=== PATIENT | male | born 1955 | race Caucasian/White ===

== ENCOUNTER 2023-05-26 09:42 | Emergency (ER) | payer BC, SELFPAY ==
--- NOTE | ~2023-05-26 | XR_ITS ---
EXAMINATION: XR chest 2V DATE: 05/26/2023 10:54 INDICATION: Shortness of breath. Anemia. TECHNIQUE: Frontal and lateral views of the chest were obtained. COMPARISON: None. FINDINGS: There is no pneumonia, pleural effusion, or pneumothorax. The heart size is normal. There i s a large hiatal hernia. There is mild chronic anterior wedging of multiple vertebral bodies. IMPRESSION: 1. Large hiatal hernia. Reviewed, dictated and finalized at location A. IMPRESSION: 1. Large hiatal hernia.
--- NOTE | 2023-05-26 09:46 | ECG_ITS ---
SEE SCANNED COPY FOR CONFIRMED REPORT MTDD
[2023-05-26 09:47] VITALS: BP 161/93; PULSE 92; RESP 18; TEMP 36.1; O2SAT 98
[2023-05-26 10:11] LABS: Basophils Absolute Auto 0.1 K/mm3 (0.0-0.1); Basophils Percent Auto 0.7 % (0.2-1.2); Eosinophils Absolute Auto 0.3 K/mm3 (0-0.3); Eosinophils Percent Auto 2.9 % (0-4.4); Hematocrit 32.8 % (42.0-52.0); Hemoglobin 9.2 g/dL (14.0-18.0); Immature Granulocyte Absolute 0.04 K/mm3 (0.00-0.031); Immature Granulocyte Percent A 0.4 % (0-0.5); Lymphocytes Absolute Auto 1.51 K/mm3 (0.9-3.2); Lymphocytes Percent Auto 15.3 % (18.3-44.2); Mean Corpuscular Volume 71.3 fl (80-100); Mean Platelet Volume 9.5 fl (7.4-10.4); Monocytes Absolute Auto 0.7 K/mm3 (0.1-0.6); Neutrophils Absolute Auto 7.3 K/mm3 (1.3-6.7); Neutrophils Percent Auto 73.7 % (45.5-73.1); Platelet Count Result 293 k/mm3 (150-375); Red Cell Distribution Width 20.4 % (11.5-14.5); White Blood Count 9.9 K/mm3 (4.5-10.0)
[2023-05-26 10:15] VITALS: BP 143/88; PULSE 78; RESP 16; O2SAT 95; O2SAT 98
[2023-05-26 10:16] LABS: INR 1.1; Prothrombin Time 14.7 Seconds (11.1-14.7)
[2023-05-26 10:17] LABS: Partial Thromboplastin Time 27.5 Seconds (22.3-36.8)
[2023-05-26 10:32] LABS: Alanine Aminotransferase 17 U/L (6-50); Albumin Level 4.3 g/dL (3.5-5.1); Alkaline Phosphatase 67 U/L (38-126); Anion Gap 7 mmol/L (4-12); Aspartate Amino Transferase 25 U/L (17-59); Bilirubin,Total 0.6 mg/dL (0.2-1.3); Blood Urea Nitrogen 13 mg/dL (9-20); Calcium 9.2 mg/dL (8.4-10.2); Carbon Dioxide 25 mmol/L (22-30); Chloride 106 mmol/L (98-107); Estimated CRCL calculation 111 ml/min; Estimated Glomerular Filt Rate > 60; Glucose 143 mg/dL (65-110); Potassium 4.2 mmol/L (3.4-5.0); Sodium 138 mmol/L (137-145)
--- NOTE | 2023-05-26 10:39 | ED.SOB ---
HPI - SOB/Dyspnea General Chief Complaint: Shortness of Breath/Dyspnea Stated Complaint: SOB, low hgb Time Seen by Provider: 05/26/23 10:19 Source: patient Mode of arrival: ambulatory Limitations: no limitations History of Present Illness HPI Narrative: 68-year-old male presenting for his shortness of breath on exertion for the last week. Typically when this happens to him he has low hemoglobin any to blood transfusion. He has had many blood transfusions in his life and feels like that is the case. Had outpatient lab work by his PCP in find hemoglobin to be 9.3 and his PCP told to come in to get a blood transfusion. Otherwise no complaints. No reported CHF history Related Data Allergies Allergy/AdvReac Type Severity Reaction Status Date / Time No Known Allergies Allergy Unverified 03/15/17 10:51 Review of Systems Review of Systems: All systems reviewed & are unremarkable except as noted in HPI and below Exam Narrative: Constitutional: Generally well appearing, no acute distress Head: Atraumatic, no deformities. Eyes: Pupils equal, round, and reactive to light. Neck: Supple, no tracheal deviation, no JVD. ENMT: Mucous membranes moist Cardiovascular: S1, S2 auscultated. No murmurs, rubs, or gallops. No S3/S4. Normal Distal pulses. No peripheral edema. Respiratory: Lung sounds equal. No wheezes, rales, or rhonchi. Gastrointestinal: Abdomen was soft and non-tender. Non-distended. No rebound or guarding. Genitourinary: Deferred Musculoskeletal: Normal muscle tone and bulk. No obvious deformities or tenderness over extremities. Skin: No rashes. Neurological: Strength 5/5 in extremities. Cranial nerves I-XII grossly intact. Distal sensation intact. Mental Status: Awake, alert and oriented x3. Follows commands Course Vital Signs Vital signs: Vital Signs Temperature 36.1 C L 05/26/23 09:47 Pulse Rate 92 05/26/23 09:47 Respiratory Rate 18 05/26/23 09:47 Blood Pressure 161/93 H 05/26/23 09:47 Pulse Oximetry 98 05/26/23 09:47 Oxygen Delivery Room Air 05/26/23 09:47 Temperature 36.1 C L 05/26/23 09:47 Pulse Rate 78 05/26/23 10:15 Respiratory Rate 16 05/26/23 10:15 Blood Pressure 143/88 H 05/26/23 10:15 Pulse Oximetry 98 05/26/23 10:15 Oxygen Delivery Room Air 05/26/23 10:15 MDM - SOB/Dyspnea MDM Narrative Medical decision making narrative: 68-year-old male presenting with some mild shortness of breath on exertion. Ongoing for a week. No other symptoms. History of anemia requiring multiple transfusions. Iron deficiency in the past. Gets regular effusions. On exam is well-appearing. Normal vital signs, slightly hypertensive. Normal cardio respiratory exam. Slightly pale. Hemoglobin was 9.3 as an outpatient. Discussed we will not be transfusing him for this given its not low enough. Will repeat labs, obtain cardiac workup. Labs and imaging reviewed. BNP indeterminate. Clinically patient is not fluid overloaded. Reassessed him complaints feeling well. Likely discharge. Discussed he needs to follow up with his PCP because he needs a biochemist to evaluate him in the near future as well as Hematology. I offered to give him follow-up with our here but he wants to get his own via his PCP. Pt feeling improved and would like to go home at this point. Return precautions were given to the patient include any new or worsening symptoms or development of and not limited to any chest pain, shortness of breath, lightheadedness, abdominal pain, fevers, chills. Patient understands and agrees. They are to follow-up with her PCP. All questions were answered. I reviewed the patient's vital signs, history, allergies, and labs and imaging workup. Lab Data 05/26/23 09:58 05/26/23 09:58 Labs: Lab Results 05/26/23 Range/Units 09:58 WBC 9.9 (4.5-10.0) K/mm3 RBC 4.60 (4.6-6.20) M/mm3 Hgb 9.2 L (14.0-18.0) g/dL Hct 32.8 L (42.0-52.0) % M
[2023-05-26 10:44] LABS: Anisocytosis 1+; Hypochromasia 2+; Microcytosis 1+ (NORMAL); Ovalocytes 1+; Platelet Estimate Adequate (Adequate); Schistocytes None Seen
[2023-05-26 11:19] LABS: NT Pro B Type Natriuretic Pept 282 pg/mL (19.9-100); Troponin I < 0.012 ng/mL (0.000-0.034)
[2023-05-26 11:50] VITALS: BP 122/77; PULSE 71; RESP 16; O2SAT 95
== END 2023-05-26 11:50 | disposition home or self-care (01) ==
PROVIDERS: Emergency Provider Emergency Medicine; PCP Internal Medicine
DX: D64.9 Anemia, unspecified (principal)
CPT/HCPCS: 36415; 71046; 80053; 83880; 84484; 85025; 85610; 85730; 86850; 86900; 86901; 93005; 99284